=== PATIENT | female | born 1965 | race Caucasian/White ===

== ENCOUNTER 2018-04-12 08:03 | Outpatient (CLI) | payer OTHER, BC ==
--- NOTE | 2018-04-12 09:20 | CT ---
ABDOMEN AND PELVIC CT SCAN WITH IV CONTRAST: History: 52-year-old female with history of R10.32, left lower quadrant pain. Rectal bleeding. History of gregorio l stones in the pass. FINDINGS: The lung bases are clear. Liver, gallbladder, pancreas, spleen, and adrenal glands are unremarkable. No renal calculi or acute obstruction. No evidence for large or small bowel obstruction. No CT sergio dence for acute appendicitis. Ureters and adnexal regions are unremarkable. IMPRESSION: Unremarkable abdomen and pelvic CT scan. No significant abnormality. POS: PAWEL
== END 2018-04-12 08:04 | disposition home or self-care (01) ==
LOC: BICCT 08:03
PROVIDERS: ATTEND Family Medicine
DX: R10.32 Left lower quadrant pain (principal)
CPT/HCPCS: 74177

== ENCOUNTER 2018-05-02 08:05 | Outpatient (CLI) | payer OTHER | END 2018-05-02 08:06 | disposition home or self-care (01) | LOC: BICMAMMO 08:05 | PROVIDERS: ATTEND Family Medicine | DX: Z12.31 Encounter for screening mammogram for malignant neoplasm of breast (principal) | CPT/HCPCS: 77063; 77067 ==

== ENCOUNTER 2019-09-14 16:03 | Inpatient (IN) | payer OTHER ==
[~2019-09-14 16:03] MED LIST: Iopamidol-370 76% 500 ML 1 ML ONE
[2019-09-14 17:04] LABS: #Eosinphils 0.1 thou/uL (0.0-0.7); #Lymphocytes 1.8 thou/uL (1.20-3.40); #Monocytes 0.8 thou/uL (0.11-0.59); #Neutrophils 6.1 thou/uL (1.40-6.50); %Basophils 0.3 % (0.0-1.0); %Eosinophils 0.7 % (0.0-10.0); %Lymphocytes 20.7 % (21.0-51.0); %Monocytes 8.9 % (0.0-10.0); %Neutrophils 69.4 % (42.0-75.0); Mean Corpuscular HGB CONC 32.4 g/dL (32.0-36.0); Mean Corpuscular Hemoglobin 31.1 pg (27.0-31.0); Mean Corpuscular Volume 96.1 fL (78.0-98.0); Platelet Count 237 thou/uL (130-400); White Blood Cell (WBC) Count 8.9 thou/uL (4.8-10.8)
[2019-09-14 17:09] LABS: INR-International Normal Ratio 0.9; Prothrombin Time 12.4 sec (12.0-14.7)
[2019-09-14 17:13] LABS: PTT 24.9 SEC (22.9-36.1)
[2019-09-14 17:31] LABS: ALT (SGPT) 8 U/L (8-55); AST (SGOT) 17 U/L (5-34); Albumin 4.3 g/dL (3.5-5.0); Alkaline Phosphatase 70 U/L (40-110); Anion Gap 13 mmol/L (10-20); BUN (Urea Nitrogen) 15 mg/dL (9.8-20.1); Bilirubin, Total 0.7 mg/dL (0.2-1.2); Calc. Creatinine Clearance 0 mL/min (70-130); Carbon Dioxide 24 mmol/L (22-29); Chloride 104 mmol/L (98-107); Estimated GFR-MDRD 64; Globulin 2.9 g/dL (2.4-3.5); Glucose 83 mg/dL (70-105); Lipase 19 U/L (8-78); Potassium 3.7 mmol/L (3.5-5.1); Protein, Total 7.2 g/dL (6.0-8.3); Sodium 137 mmol/L (136-145)
[2019-09-14] MEDS ORDERED: Morphine 4 MG/ML VIAL ONE ×2 (17:34→20:54)
[2019-09-14] MEDS ORDERED: Ondansetron PF 4 MG/2 ML Vial ONE (17:34)
[2019-09-14 17:40] LABS: Bilirubin Negative (Negative); Blood, Urine Negative (Negative); Clarity Clear (Clear); Glucose, Urine (Dipstick) Normal (Negative); Leukocyte Negative Leu/uL (Negative); Nitrite Negative (Negative); Protein, Urine (Dipstick) 10 mg/dL (Neg-Trace); Urobilinogen Normal mg/dL (Less than 2)
[2019-09-14 17:42] LABS: Pregnancy Test - Urine (BHCG) Negative (Negative); Pregu Control Background? CLEAR/WHITE (CLR/WHITE); Pregu Control Bar Appear? YES (CONTROL BAR); Specific Gravity 1.029 (1.002-1.036)
--- NOTE | 2019-09-14 18:43 | CT ---
EXAM: CT ABDOMEN AND PELVIS HISTORY: Abdominal pain COMPARISON: 04/12/2018 Procedure: Multiple contiguous axial images were obtained and a CT of the abdomen and pelvis with IV contrast. C oronal reformats were performed. FINDINGS: Lower Chest: within normal limits. Vessels: Normal caliber aorta. No periaortic fat stranding Heart: Normal heart size. No significant pericardial fluid Abdomen: Portal vein:Patent Gallbladder: No calcified gallstones. Normal caliber wall. Liver: Subcentimeter hypodensity in the left hepatic lobe is too small to further characterize Pancreas: within normal limits. Spleen: within normal limits. Adrenals: within normal limits. Kidneys: Symmetric enhancement. No obstructive uropathy. Peritoneum: No ascites or free air, no fluid collection. Bowel: Limited evaluation due to the lack of oral contrast administration. No evidence of bowel obstr uction. Ileocecal junction is unremarkable. Hyperdense material suggesting debris within the appendix. No evidence of inflammatory change. Scattered fecal material in a nondistended, nondilated colon. There does appear to be a segment of bowel wall thickening with minimal pericolonic fat stranding involving the mid to distal transverse colon. Mesentery and Retroperitoneum: No enlarged mesenteric or retroperitoneal lymph nodes. Abdominal Wall: within normal limits. Pelvis: Reproductive Organs: Uterus has a normal attenuation. There are multiple hypodensities in the left an d right adnexa. The largest right adnexal hypodensity measures 3.0 x 4.0 cm and is compatible with a complex right ovarian cyst. Hypodensity in the left adnexa measures 2.7 x 1.8 cm and is compatible with a complex left ovarian cyst. There is an exophytic hypodensity emanating from the serosal margin of the lower uterus, measuring 2.2 x 1.7 cm with attenuation coefficient of -3 Hounsfield unit s suggesting a cystic lesion. Pelvis: No mass, lymphadenopathy, free air or free fluid. Bladder: within normal limits. Bones: within normal limits. IMPRESSION: 1. Possible colitis involving the transverse colon 2. Hypodensities involving the left and right adnexa as well as the serosal margin of the uterus may represent a combination of complex ovarian cyst and a nonspecific cystic lesion emanating from the uterus. Lesions were not appreciated on the previous examination. Nonemergent pelvic ultrasound/pelvi c MRI may be beneficial. Transcribed Date/Time: 09/14/2019 7:08 PM
[2019-09-14] MEDS ORDERED: Pantoprazole 40 MG VIAL ONE (20:54)
[2019-09-14] MEDS ORDERED: metroNIDAZOLE 500 MG/100 ML BAG ONE (20:55)
[2019-09-14] MEDS ORDERED: Ondansetron PF 4 MG/2 ML Vial IVP PRN (21:05)
[2019-09-14] MEDS: Dextrose 5 % And 0.9 % NaCl 1,000 ML IV SCH (23:20)
[2019-09-14] MEDS ORDERED: diphenhydrAMINE 50 MG/ML VIAL IVP SCH (23:30)
[2019-09-14 23:31] VITALS: BMI 24.0
[2019-09-15 00:39] LABS: #Eosinphils 0.1 thou/uL (0.0-0.7); #Lymphocytes 2.1 thou/uL (1.20-3.40); #Monocytes 0.7 thou/uL (0.11-0.59); %Basophils 0.4 % (0.0-1.0); %Eosinophils 1.8 % (0.0-10.0); %Lymphocytes 30.7 % (21.0-51.0); %Monocytes 9.4 % (0.0-10.0); %Neutrophils 57.7 % (42.0-75.0); Hemoglobin 12.8 g/dL (12.0-16.0); Mean Corpuscular HGB CONC 32.8 g/dL (32.0-36.0); Mean Corpuscular Hemoglobin 31.7 pg (27.0-31.0); Mean Corpuscular Volume 96.4 fL (78.0-98.0); Mean Platelet Volume 8.3 fL (7.4-10.4); Platelet Count 186 thou/uL (130-400); RBC Distribution Width 12.1 % (11.5-14.5); Red Blood Cell (RBC) Count 4.03 mill/uL (4.20-5.40)
--- NOTE | 2019-09-15 02:29 | HP ---
REASON FOR ADMISSION: Rectal bleed. HISTORY OF PRESENT ILLNESS: This is a 53-year-old female patient, who is presenting with rectal bleeding. History going back to approximately 18 hours of her presentation around 2:30 a.m., she felt her abdomen getting bloated and started having nausea, vomiting, abdominal pain, mainly localized on the right side of her abdomen. Then, she started having frequent episodes of bright red blood per rectum. She had a total of 18 episodes, the last one was 5 hours ago while she was in the emergency room. She denies having stool in her bowel movement. She did describe a bit of gel or tissue like material. She denies fever, denies chills. She does report nausea and vomiting. She does report being lightheaded yesterday. In 2018, the patient had bloating of her abdomen and severe pain, but she did not have any blood through her rectum. She did undergo an upper GI and a colonoscopy. Findings were normal. Her CT scan of the abdomen was normal as well. Since then, she has been having off and on episodes of bloating and abdominal discomfort and yesterday, she thought that she was having recurrence of these episodes, but then started having blood through her rectum. In the emergency room, she appears to be comfortable, but her blood pressure is elevated. As she started complaining of pain, her blood pressure became more elevated. PAST MEDICAL HISTORY: Migraines. FAMILY HISTORY: Negative for an inflammatory bowel disease. SOCIAL HISTORY: She does not smoke. Does not drink alcohol. ALLERGIES: NO KNOWN DRUG ALLERGIES. REVIEW OF SYSTEMS: All systems reviewed except the above mentioned, found to be negative. PHYSICAL EXAMINATION: GENERAL: She is awake, alert, oriented, does not appear in distress. VITAL SIGNS: Her blood pressure is 180/102, heart rate 75. HEENT: Head is nontraumatic, normocephalic. Pupils are equal, and reactive. Extraocular movements are intact. Nonicteric sclerae. Well injected conjunctivae. Oral mucosa normal. Nasal mucosa normal. NECK: Supple. No adenopathy. No murmur. Thyroid is not palpable. Trachea is midline. No supraclavicular lymphadenopathy. HEART: S1, S2 regular. No murmur. No gallops. No friction rubs. No displacement of PMI. LUNGS: Clear to auscultation bilaterally. No wheezes, rhonchi, or crackles. ABDOMEN: Bowel sounds are positive. Abdomen is tender on palpation, but overall soft. EXTREMITIES: No lower extremity edema. No cyanosis. NEUROLOGIC: Cranial nerves 2 through 12 within normal limits. Normal motor function. Normal sensory function. Normal reflexes. LABORATORY DATA: Blood work shows WBC of 8.9, hemoglobin 14, and platelets of 237. INR 0.9, PTT 24.9. Sodium 137, potassium of 3.7, BUN 15, creatinine 0.92. LFTs within normal limits. IMAGING: A CT of the abdomen and pelvis shows possible colitis involving the transverse colon, hyperdensity involving the left and right adnexa as well as the serosal margin of the uterus may represent a combination of complex ovarian cyst and nonspecific cystic lesion emanating from the uterus. These lesions were not appreciated on previous examination. Nonemergent pelvic ultrasound and pelvic MRI may be beneficial. ASSESSMENT AND PLAN: This is a 53-year-old female patient, who is presenting with abdominal pain and bleeding through her rectum, but remains hemodynamically stable and not anemic. She will be admitted to med/surg. We will keep her n.p.o. She will be on IV fluids. We will type and screen her and we will do serial H and H. I placed a consultation to Gastroenterology. We will have her on IV antibiotics just in case we are dealing with an infectious colitis, although she is not having fevers, though less likely. Also we will start her on IV Protonix in case we are dealing with an upper GI bleed, although she is having bright red blood and not melena, but just in case. For deep venous thrombosis prophylaxis, she will be on SCDs. For high blood pressure, she will be on hydralazine as needed and it seems that whenever her pain is better controlled, her blood pressure becomes better. In regards of the incidental finding on a CAT scan, I will discuss that with her and instruct her to follow up with her Weight Loss Sales Consultant as an outpatient. Job ID: [id number]
[2019-09-15] MEDS ORDERED: diphenhydrAMINE 50 MG/ML VIAL IVP PRN (05:11)
[2019-09-15] MEDS: Morphine 4 MG/ML VIAL SLOW IVP PRN ×2 (05:55→18:01)
[2019-09-15] MEDS ORDERED: metroNIDAZOLE 500 MG in Premix Bag 1 BAG IVPB SCH (06:00)
[2019-09-15 07:35] LABS: Calcium 7.9 mg/dL (7.8-10.44); Chloride 106 mmol/L (98-107); Potassium 3.6 mmol/L (3.5-5.1); Sodium 139 mmol/L (136-145)
[2019-09-15 07:36] LABS: Glucose 90 mg/dL (70-105)
[2019-09-15 07:37] LABS: Anion Gap 12 mmol/L (10-20); Carbon Dioxide 25 mmol/L (22-29)
[2019-09-15 07:39] LABS: Calc. Creatinine Clearance 83 mL/min (70-130); Estimated GFR-MDRD 70
[2019-09-15 07:40] LABS: BUN (Urea Nitrogen) 8 mg/dL (9.8-20.1)
[2019-09-15] MEDS: hydrALAZINE 20 MG/ML VIAL SLOW IVP PRN (08:15)
[2019-09-15] MEDS: Pantoprazole 40 MG VIAL IVP SCH ×2 (08:16→20:15)
[2019-09-15] MEDS: Dextrose 5 % And 0.9 % NaCl 1,000 ML IV SCH ×2 (09:32→14:14)
--- NOTE | 2019-09-15 11:19 | CON ---
DATE OF CONSULTATION: 09/15/2019 REQUESTING PHYSICIAN: Dr. Brock. REASON FOR CONSULTATION: Lower GI bleeding. HISTORY OF PRESENT ILLNESS: Rosa Harrington is a very pleasant 53-year-old woman, who was admitted to the hospital last night with lower GI bleeding. She has a past medical history significant only for migraines. She has seen my GI colleague, Dr. Nikki Samuels in the past. Back in March 2018, she had some CT lab and endoscopic workup for episodic bloating, nausea and vomiting. In March 2018, EGD showed only a small hiatal hernia, was otherwise normal. Colonoscopy at that time showed only left-sided diverticulosis and was otherwise normal. The patient reports over the past couple of years, she has continued to have episodic bloating and emesis episodes perhaps once per month, associated with generalized and migratory abdominal discomfort, but she has never had any overt blood in the stool before. Two days ago, she was feeling very dizzy and lightheaded, which is not usual for her. This lasted for several hours. She went to sleep, but then woke up about 2:30 a.m. yesterday, had to go into the bathroom and passed a large amount of bright red blood. This happened multiple times over several hours yesterday, in which she passed no stool, but just a lot of bright red blood, but also what appeared to be clots or possibly soft tissue. There was a lot of generalized abdominal discomfort with this involving the epigastrium in the right lower quadrant as well as the left side. The passages of blood slowed down and she has not passed any blood since late yesterday. The abdominal discomfort persists, though it is pretty well controlled on morphine. Upon presentation, she had a CT of the abdomen and pelvis, which demonstrated segmental bowel wall thickening in the mid to distal transverse colon without much pericolonic inflammatory stranding and also incidentally multiple cystic hypodensities in the bilateral adnexa. Laboratory studies are essentially unremarkable with hemoglobin stable at 12.8 this morning. She was started on ciprofloxacin and Flagyl as well as a Protonix drip. She has remained hemodynamically stable. REVIEW OF SYSTEMS: Full review of systems including constitutional; head, eyes, ears, nose, throat; GI; ; cardiovascular; respiratory; musculoskeletal; neurologic systems is negative except as noted in the HPI. PAST MEDICAL HISTORY: Migraines. SOCIAL HISTORY: No smoking or alcohol use. FAMILY HISTORY: Negative for inflammatory bowel disease. Her maternal grandfather had colon cancer. Her father had peptic ulcer disease. ALLERGIES: NO KNOWN DRUG ALLERGIES. MEDICATIONS: Outpatient medications, Effexor 50 mg daily. Inpatient medications; 1. Protonix 40 mg IV q.12 hours. 2. Zofran p.r.n. 3. Morphine p.r.n. 4. Ciprofloxacin 400 mg IV q.12 hours. 5. Metronidazole 500 mg IV. PHYSICAL EXAMINATION: VITAL SIGNS: Temperature 98.2, pulse 80, blood pressure 159/91, 96% oxygen saturation on room air. GENERAL: A 53-year-old woman, lying in bed comfortably, in no acute distress. SKIN: No jaundice. No rashes were palpable. She does have some small ecchymoses to the upper and lower extremities bilaterally. EYES: No scleral icterus. Extraocular movements are intact. ENT: Mucous membranes are moist. No oral lesions. LYMPH: No submandibular or supraclavicular lymphadenopathy. THYROID: Nontender to palpation. HEART: Regular rate and rhythm. LUNGS: Clear to auscultation bilaterally. ABDOMEN: Bowel sounds are present. Soft, tender to palpation throughout the abdomen including the epigastrium, left abdomen, and right lower quadrant, but no guarding or rebound tenderness. EXTREMITIES: No peripheral edema. VESSELS: Radial pulses 2+ bilaterally. NEURO: Cranial nerves 2 through 12 intact bilaterally. No focal deficits. LABORATORY STUDIES: Hemoglobin 12.8, WBC 7, platelets 186. INR 0.9. Sodium 139, potassium 3.6, BUN 8, creatinine 0.86, lipase 19. LFTs all normal with total bilirubin 0.7, alkaline phosphatase 70, AST 17, ALT 8, albumin 4.3. Urine test negative. Urinalysis negative. IMAGING STUDIES: CT of the abdomen and pelvis demonstrates segmental bowel wall thickening involving the mid to distal transverse colon. There are multiple cystic hypodensities in the bilateral adnexa measuring up to 4 cm, which is thought to be an incidental finding. The skin is otherwise unrevealing. ASSESSMENT AND PLAN: 1. Acute colitis, mid to distal transverse colon suggested on CT scan yesterday. 2. Lower GI bleeding, with stable hemoglobin and hematocrit this morning. 3. Generalized abdominal pain, acute on chronic. The patient's presentation seems most consistent with an acute colitis, and by CT, it appears to be involving the mid to distal transverse colon. With this episode of dizziness and presyncope, several hours preceding the onset of bloody stools, I have a suspicion that this may represent an episode of acute ischemic colitis. Also consider the possibility of infectious colitis versus inflammatory bowel disease, less likely neoplastic process in that area, given that she had an otherwise unrevealing colonoscopy in March 2018. With the abdominal pain she has been having, this is less likely to represent a diverticular bleed. At this point, she is getting excellent supportive care and hemoglobin and hematocrit are stable. I will order stool studies to be sent for Clostridium difficile and other infectious pathogens. We are going to go ahead and plan for diagnostic colonoscopy tomorrow. If the colonoscopy is negative or unrevealing, we will perform EGD as well. Thank you for the consultation. Please call anytime with questions or concerns. Job ID: [id number]
[2019-09-15] MEDS ORDERED: SUMAtriptan Succinate 50 MG TAB PO SCH (15:15)
[2019-09-15] MEDS ORDERED: Dihydroergotamine Mesylate 1 MG/ML AMP IM PRN (16:02)
[2019-09-15] MEDS ORDERED: GoLYTELY 4,000 ml Bottle PO SCH (18:00)
--- NOTE | 2019-09-15 18:05 | PDOC.HOSPP ---
- Subjective Encounter Date: 09/15/19 Encounter Time: 09:40 Subjective: Pt seen for followup re: GI bleed. c/o headache. No fevers. Mild RLQ pain. - Objective Vital Signs & Weight: Vital Signs (12 hours) Temp Pulse Resp BP BP Pulse Ox 09/15/19 15:52 98.1 F 81 16 137/93 H 100 09/15/19 10:45 98.4 F 86 16 117/73 98 09/15/19 10:26 148/90 H 09/15/19 09:34 135/74 09/15/19 08:20 96 09/15/19 08:15 80 09/15/19 07:00 98.2 F 80 16 159/91 H 96 Weight Weight 149 lb I&O: 09/14/19 09/15/19 09/16/19 06:59 06:59 06:59 Intake Total 975 Balance 975 Result Diagrams: 09/15/19 00:12 09/15/19 07:13 Additional Labs: Labs and MARs reviewed by fl Hospitalist ROS - Review of Systems Cardiovascular: denies: chest pain, palpitations, orthopnea, paroxysmal noc. dyspnea, edema, light headedness Gastrointestinal: denies: nausea, vomiting, abdominal pain, diarrhea, constipation, melena, hematochezia - Medication Medications: Active Medications Generic Name Dose Route Start Last Admin Trade Name Freq PRN Reason Stop Dose Admin Diphenhydramine HCl 50 mg 09/15/19 05:11 09/15/19 05:55 Benadryl IVP 50 mg Q6H PRN Administration Hives Hydralazine HCl 5 mg 09/14/19 21:12 09/15/19 08:15 Apresoline SLOW IVP 5 mg Q6H PRN Administration SBP > 140 Ciprofloxacin/Dextrose 400 mg/ 200 mls @ 200 mls/hr 09/14/19 22:00 09/15/19 08:17 Device IVPB 200 mls 1000,2200 IRMA Administration Dextrose/Sodium Chloride 1,000 mls @ 75 mls/hr 09/14/19 21:30 09/15/19 14:14 D5 0.9% Ns IV 1,000 mls .[id number] IRMA Administration Morphine Sulfate 4 mg 09/14/19 21:15 09/15/19 18:01 Morphine SLOW IVP 4 mg Q4H PRN Administration Breakthrough Pain Pantoprazole Sodium 40 mg 09/15/19 09:00 09/15/19 08:16 Protonix IVP 40 mg Q12HR IRMA Administration Polyethylene Glycol/Electrolytes 4,000 ml 09/15/19 18:00 09/15/19 18:01 Golytely PO 09/15/19 22:00 4,000 ml 1800 IRMA Administration - Exam General Appearance: awake alert Eye: anicteric sclera ENT: normocephalic atraumatic Neck: supple, symmetric, no JVD, no thyromegaly Heart: RRR, no gallops, no rubs, normal peripheral pulses Respiratory: CTAB, no wheezes, no rales, no ronchi Gastrointestinal: soft, non-distended, normal bowel sounds, no guarding, no rigidity Gastrointestinal - other findings: Mild RLQ tenderness Musculoskeletal: normal tone, normal strength Psychiatric: normal affect, normal behavior, A&O x 3 Hosp A/P (1) Lower GI bleed Code(s): K92.2 - GASTROINTESTINAL HEMORRHAGE, UNSPECIFIED Status: Acute (2) Colitis Code(s): K52.9 - NONINFECTIVE GASTROENTERITIS AND COLITIS, UNSPECIFIED Status : Acute (3) Migraine Code(s): G43.909 - MIGRAINE, UNSP, NOT INTRACTABLE, WITHOUT STATUS MIGRAINOSUS Status: Chronic (4) Depression Code(s): F32.9 - MAJOR DEPRESSIVE DISORDER, SINGLE EPISODE, UNSPECIFIED Status : Chronic - Plan Continue ciprofloxacin and Flagyl for possible infectious colitis. Trial Imitrex/DHE for migraine headache. Depression mild, stable. Continue Venlafaxine.
[2019-09-15] MEDS: diphenhydrAMINE 25 MG CAP PO PRN (21:15)
[2019-09-15] MEDS: SUMAtriptan Succinate 50 MG TAB PO PRN (23:07)
[2019-09-16] MEDS: hydrALAZINE 20 MG/ML VIAL SLOW IVP PRN ×2 (00:43→05:43)
[2019-09-16] MEDS: Dextrose 5 % And 0.9 % NaCl 1,000 ML IV SCH ×3 (00:46→21:07)
[2019-09-16 06:34] LABS: #Basophils 0.1 thou/uL (0.0-0.2); #Eosinphils 0.2 thou/uL (0.0-0.7); #Lymphocytes 2.3 thou/uL (1.20-3.40); #Monocytes 0.9 thou/uL (0.11-0.59); #Neutrophils 6.5 thou/uL (1.40-6.50); %Lymphocytes 23.2 % (21.0-51.0); %Neutrophils 64.7 % (42.0-75.0); Hemoglobin 14.3 g/dL (12.0-16.0); Mean Corpuscular Volume 96.8 fL (78.0-98.0); Mean Platelet Volume 8.1 fL (7.4-10.4); Platelet Count 237 thou/uL (130-400); RBC Distribution Width 12.1 % (11.5-14.5); Red Blood Cell (RBC) Count 4.47 mill/uL (4.20-5.40)
[2019-09-16 06:41] LABS: INR-International Normal Ratio 0.9; Prothrombin Time 12.4 sec (12.0-14.7)
[2019-09-16] MEDS: Pantoprazole 40 MG VIAL IVP SCH ×2 (08:47→21:06)
[2019-09-16] MEDS: Venlafaxine HCl 25 MG TAB PO SCH (08:47)
[2019-09-16] MEDS ORDERED: Morphine 4 MG/ML VIAL ONE (09:18)
[2019-09-16] MEDS ORDERED: Ondansetron PF 4 MG/2 ML Vial ONE (09:21)
[2019-09-16] MEDS ORDERED: Dicyclomine 10 MG CAP PO PRN (11:02)
--- NOTE | 2019-09-16 11:51 | OP ---
DATE OF PROCEDURE: 09/16/2019 DOCUMENT PROCESSING SPECIALIST SURGEON: None. PROCEDURES PERFORMED: Colonoscopy with biopsies. INDICATIONS: 1. Lower GI bleeding, resolved. 2. Generalized abdominal pain. 3. Acute colitis, with CT suggestive of focal inflammation in the mid to distal transverse colon area. MEDICATIONS: See Anesthesia record. FINDINGS: After discussion of the risks, benefits, and alternatives of the procedure, informed consent was obtained and witnessed. Pre-endoscopic cardiopulmonary examination was satisfactory. Time-out was performed before sedation was achieved. Sedation was achieved with Anesthesia assistance in the endoscopy unit. Digital rectal exam was performed, which was unremarkable. A Pentax adult colonoscope was inserted into the anus and passed forward to the cecum in the usual fashion. The cecal base was identified by the appendiceal orifice as well as the ileocecal valve. The terminal ileum was intubated and the ileal mucosa appeared normal. The colonoscope was slowly withdrawn in a gradual and circumferential manner with careful examination of the entire colonic mucosa. The quality of the prep was good at 60 cm from the anal verge, which is in the area of the splenic flexure, there is an area of focal colitis. This is mild in severity, characterized by erythema, edema, and a few small erosions in a patchy distribution, fairly localized. Biopsies were obtained from this area. Overall, it has the appearance of probable resolving ischemic colitis. The remainder of the colonic mucosa appeared normal throughout. There were no polyps or mass lesions visualized. Retroflexion in the rectum was unremarkable. The colonoscope was completely withdrawn and the patient allowed to recover. The patient tolerated the procedure well. There were no immediate postprocedure complications. IMPRESSION: 1. Focal colitis at the splenic flexure, mild in severity, patchy distribution, likely representing resolving ischemic colitis. Biopsied. 2. Otherwise normal colonoscopy to the terminal ileum. RECOMMENDATIONS: 1. Advance diet as tolerated. 2. Follow up pathology. 3. The antibiotic can be stopped. 4. Continue supportive care for symptoms. Dicyclomine could be used as needed for abdominal cramps. 5. Expect continued symptomatic improvement. From a GI standpoint, the patient could be discharged once discomfort is adequately controlled and she is tolerating her diet. Job ID: [id number]
[2019-09-16] MEDS ORDERED: PROPOFOL 200 MG/20 ML VIAL ONE (14:59)
[2019-09-16] MEDS: SUMAtriptan Succinate 50 MG TAB PO PRN (16:59)
--- NOTE | 2019-09-16 19:17 | PDOC.HOSPP ---
- Subjective Encounter Date: 09/16/19 Encounter Time: 19:15 Subjective: Pt seen for followup re: lower GI bleed. Feels better. No bleeding today. - Objective Vital Signs & Weight: Vital Signs (12 hours) Temp Pulse Resp BP Pulse Ox 09/16/19 12:50 98.0 F 105 H 20 117/69 98 09/16/19 11:25 98.0 F 95 18 137/87 99 09/16/19 09:00 98.2 F 105 H 20 141/88 H 96 09/16/19 07:24 98.0 F 107 H 16 128/77 99 Weight Weight 149 lb I&O: 09/15/19 09/16/19 09/17/19 06:59 06:59 06:59 Intake Total 975 6500 Balance 975 6500 Result Diagrams: 09/16/19 06:07 09/15/19 07:13 Additional Labs: Labs and MARs reviewed by wi Hospitalist ROS - Review of Systems Cardiovascular: denies: chest pain, palpitations, orthopnea, paroxysmal noc. dyspnea, edema, light headedness Gastrointestinal: reports: abdominal pain. denies: nausea, vomiting, diarrhea, constipation, melena, hematochezia - Medication Medications: Active Medications Generic Name Dose Route Start Last Admin Trade Name Freq PRN Reason Stop Dose Admin Diphenhydramine HCl 25 mg 09/14/19 23:13 09/15/19 21:15 Benadryl PO 25 mg Q4H PRN Administration Itching Diphenhydramine HCl 50 mg 09/15/19 05:11 09/15/19 05:55 Benadryl IVP 50 mg Q6H PRN Administration Hives Hydralazine HCl 5 mg 09/14/19 21:12 09/16/19 05:43 Apresoline SLOW IVP 5 mg Q6H PRN Administration SBP > 140 Dextrose/Sodium Chloride 1,000 mls @ 75 mls/hr 09/14/19 21:30 09/16/19 14:32 D5 0.9% Ns IV Not Given .[id number] IRMA Morphine Sulfate 4 mg 09/14/19 21:15 09/15/19 18:01 Morphine SLOW IVP 4 mg Q4H PRN Administration Breakthrough Pain Ondansetron HCl 4 mg 09/14/19 21:05 09/15/19 18:09 Zofran IVP 4 mg Q6H PRN Administration Nausea/Vomiting Pantoprazole Sodium 40 mg 09/15/19 09:00 09/16/19 08:47 Protonix IVP 40 mg Q12HR IRMA Administration Sodium Chloride 10 ml 09/15/19 21:00 09/16/19 08:48 Flush - Normal Saline IVF 10 ml Q12HR IRMA Administration Sumatriptan Succinate 50 mg 09/15/19 16:02 09/16/19 16:59 Imitrex PO 50 mg DAILY PRN Administration Migraine Headache Venlafaxine HCl 50 mg 09/16/19 09:00 09/16/19 08:47 Effexor PO 50 mg DAILY IRMA Administration - Exam General Appearance: awake alert Eye: anicteric sclera ENT: no oropharyngeal lesions, moist mucosa Neck: supple Heart: RRR Respiratory: CTAB Gastrointestinal: soft, non-tender, normal bowel sounds Musculoskeletal: no muscle wasting Psychiatric: normal affect, normal behavior Hosp A/P (1) Lower GI bleed Code(s): K92.2 - GASTROINTESTINAL HEMORRHAGE, UNSPECIFIED Status: Acute (2) Colitis Code(s): K52.9 - NONINFECTIVE GASTROENTERITIS AND COLITIS, UNSPECIFIED Status : Acute (3) Migraine Code(s): G43.909 - MIGRAINE, UNSP, NOT INTRACTABLE, WITHOUT STATUS MIGRAINOSUS Status: Chronic (4) Depression Code(s): F32.9 - MAJOR DEPRESSIVE DISORDER, SINGLE EPISODE, UNSPECIFIED Status : Chronic - Plan out of bed/ambulate, DVT proph w/SCDs s/p colonoscopy, likely ischemic colitis. Antibiotics discontinued. Continue PRN Imitrex/DHE for migraine headache. Continue Venlafaxine.
[2019-09-16] MEDS: diphenhydrAMINE 25 MG CAP PO PRN (21:06)
[2019-09-17] MEDS: Dextrose 5 % And 0.9 % NaCl 1,000 ML IV SCH ×2 (02:57→09:36)
[2019-09-17] MEDS: Venlafaxine HCl 25 MG TAB PO SCH (09:35)
[2019-09-17] MEDS: Pantoprazole 40 MG VIAL IVP SCH (09:36)
--- NOTE | 2019-09-17 11:05 | PRG ---
DATE OF SERVICE: 09/17/2019 SUBJECTIVE: Ms. Harrington is feeling quite a bit better today. She has not had any further diarrhea or hematochezia, actually no bowel movement since colonoscopy yesterday. She still is having a bit of more mild crampy generalized abdominal discomfort and continued headache. OBJECTIVE: VITAL SIGNS: Temperature 98.9, pulse 85, blood pressure 135/85, and 95% oxygen saturation on room air. GENERAL: No acute distress, sitting up in bed comfortably. HEART: Regular rate and rhythm. LUNGS: Clear to auscultation bilaterally. ABDOMEN: Bowel sounds present. Soft. Some mild tenderness to palpation in the lower abdomen. No guarding or rebound tenderness. EXTREMITIES: No peripheral edema. LABORATORY STUDIES: No new labs this morning. Colon biopsies are pending. ASSESSMENT/PLAN: 1. Acute focal colitis at the splenic flexure, likely represents ischemic colitis, resolving. 2. Lower gastrointestinal bleeding, resolved. 3. Generalized abdominal pain, appears to be secondary to resolving ischemic colitis. The patient remains clinically stable with no further hematochezia. Endoscopic appearance of the colon yesterday did appear to represent resolving ischemic colitis. I discussed with the patient that symptoms should continue to improve over the next few days and weeks. She may have some IBS symptoms during this time. It would be reasonable to take dicyclomine 10 mg 3 times daily as needed, but nothing further should be required. She is tolerating her diet. I think she is stable for discharge from the hospital today. We will have her followup in the [facility] in the next few weeks with Dr. Samuels or her physician activity assistant. GI will sign off. Please call back anytime with questions or concerns. Job ID: [id number]
[2019-09-17 11:17] LABS: #Eosinphils 0.1 thou/uL (0.0-0.7); #Monocytes 0.7 thou/uL (0.11-0.59); #Neutrophils 4.7 thou/uL (1.40-6.50); %Basophils 0.5 % (0.0-1.0); %Eosinophils 2.2 % (0.0-10.0); %Lymphocytes 15.7 % (21.0-51.0); %Monocytes 10.5 % (0.0-10.0); %Neutrophils 71.2 % (42.0-75.0); Hemoglobin 12.3 g/dL (12.0-16.0); Mean Corpuscular HGB CONC 32.6 g/dL (32.0-36.0); Mean Corpuscular Hemoglobin 31.9 pg (27.0-31.0); Mean Corpuscular Volume 97.9 fL (78.0-98.0); Mean Platelet Volume 8.1 fL (7.4-10.4); Platelet Count 160 thou/uL (130-400); RBC Distribution Width 12.1 % (11.5-14.5); Red Blood Cell (RBC) Count 3.84 mill/uL (4.20-5.40); White Blood Cell (WBC) Count 6.6 thou/uL (4.8-10.8)
[2019-09-17 11:36] LABS: Anion Gap 10 mmol/L (10-20); BUN (Urea Nitrogen) 6 mg/dL (9.8-20.1); Calc. Creatinine Clearance 95 mL/min (70-130); Calcium 8.1 mg/dL (7.8-10.44); Carbon Dioxide 26 mmol/L (22-29); Chloride 106 mmol/L (98-107); Estimated GFR-MDRD 81; Glucose 93 mg/dL (70-105); Sodium 138 mmol/L (136-145)
[2019-09-17 13:54] VITALS: BP 148/97; TEMP 98.3
--- NOTE | 2019-09-18 02:30 | DIS ---
DATE OF ADMISSION: 09/14/2019 DATE OF DISCHARGE: 09/17/2019 PRIMARY CARE PROVIDER: Dr. Richard. Xavier. DISCHARGE DIAGNOSES: 1. Ischemic colitis. 2. Migraine headaches. 3. Stable. CONDITION OF PATIENT ON THE DAY OF DISCHARGE: I assessed Ms. Harrington on the day of discharge. She denies any chest pain or shortness of breath. Vital signs are stable. S1 and S2 are heard, regular. Lungs are clear to auscultation bilaterally. CONSULTATIONS DURING THIS HOSPITALIZATION: Gastroenterology, Dr. Jelani Vegas. POST-ACUTE CARE FOLLOWUP: With primary care provider in 3 days and with Gastroenterology Service in 2 to 3 weeks. DISCHARGE MEDICATIONS: 1. Effexor 50 mg daily. 2. Zomig 2.5 mg every 6 hours as needed, 30 tablets to be dispensed. 3. Bentyl 10 mg 3 times daily as needed, 30 doses to be dispensed. HOSPITAL COURSE: Ms. Harrington is a pleasant 53-year-old lady who was admitted to [facility] on September 14, 2019 for bloody bowel movements. She was initially started on antibiotics, because of suspicion of infectious colitis. Stool Clostridium difficile test was negative. Campylobacter antigen assay and shiga toxin test were negative. She was seen by Gastroenterology Service. She underwent colonoscopy on September 16, 2019. She had focal colitis of the splenic flexure, mild in severity, patchy distribution, likely representing resolving ischemic colitis. Biopsies were taken. She also had episodes of migraine headaches during this hospitalization, which improved with Imitrex. She continued to improve clinically and is being discharged home in a stable condition. On the day of discharge, she has white count of 6600, hemoglobin 12.3, and platelet count 160,000. Many thanks for allowing me to participate in your patient's care. Please feel free to contact me with any questions or concerns. DIET: Regular. ACTIVITY: No restrictions. DISCHARGE DESTINATION: Home. TIME SPENT: Total amount of time spent coordinating this discharge: 31 minutes. Job ID: [id number]
--- NOTE | 2019-09-20 06:46 | PQF ---
GERI KHALIL DAVID [id number] CLINICAL DOCUMENTATION CLARIFICATION FORM: POST DISCHARGE Addendum to original discharge summary date: ____ Late entry note date: __ DATE:09/20/2019 ATTN: Jelani Chicas Please exercise your independent, professional judgment in responding to the clarification form. Clinical indicators are provided on the bottom of this form for your review Please check appropriate box(s): [ ] Primary/Essential Hypertension [ ] Emergency [ ] Urgency [ ] Crisis [ x ] Transient Hypertension [ ] Other diagnosis [ ] Unable to determine In addition, please specify: Present on Admission (POA): [ x ] Yes [ ] No [ ] Unable to determine For continuity of documentation, please document condition throughout progress notes and discharge summary. Thank You. CLINICAL INDICATORS - SIGNS / SYMPTOMS / LABS Vital signs 09/13 BP 166/103, Pulse 80, Resp 15. Temp 98.4 Vital signs 09/14 BP 159/91, Pulse 80, Resp 16, Temp 98.2 Vital signs 09/15 BP 162/93, Pulse 83, Resp 18, Temp 99.0 H&P p3 09/13 For high blood pressure, she will be on hydralazine as needed and it seems that when her pain is better controlled, her blood pressure becomes better Consult 09/14 she was feeling very dizzy and lightheaded PN 09/14 c/o headache RISK FACTORS H&P p1 09/13 Migraines H&P p3 09/13 Ischemic Colitis TREATMENTS: JUN 28 IV Hydralazine Hcl 5mg Vital signs monitoring (This form is maintained as a part of the permanent medical record) 2014 [employer]. All Rights Reserved [email or web address]
--- NOTE | 2019-09-20 14:06 | PQF ---
GERI KHALIL ALEE GARCIA [id number] CLINICAL DOCUMENTATION IMPROVEMENT CLARIFICATION FORM: ICD-10 Updated PLEASE DO AN ADDENDUM TO THE PROGRESS NOTE WITH ANY DOCUMENTATION UPDATES OR ADDITIONS AND CARRY THROUGH TO DC SUMMARY. THANK YOU. DATE: 09/20/2019 ATTN: Dr. Kincaid Please exercise your independent, professional judgment in responding to the clarification form. Clinical indicators are provided on the bottom of this form for your review Please check appropriate box(s): [ x] Depression/Major Depressive Disorder Single episode: [ ] Mild [ ] Moderate [ ] Severe [ ] with psychotic features [ ] without psychotic features [ x] In remission [ ] partial remission [ ] full remission [ ] Depression/Major Depressive Disorder Recurrent episode: [ ] Mild [ ] Moderate [ ] Severe [ ] with psychotic features [ ] without psychotic features [ ] In remission [ ] partial remission [ ] full remission [ ] Other diagnosis [ ] Unable to determine In addition, please specify: Present on Admission (POA): [ x ] Yes [ ] No [ ] Unable to determine For continuity of documentation, please document condition throughout progress notes and discharge summary. Thank You. CLINICAL INDICATORS - SIGNS / SYMPTOMS / LABS / RESULTS AND LOCATION IN EMR * PN 09/14 (Sanjiv): * Psychiatriac: normal affect, normal behavior, A&O x3 * Depression, stable. Continue Venlafaxine. RISK FACTORS / RESULTS AND LOCATION IN EMR * PN 09/14 (Sanjiv): Depression mild, stable TREATMENT / RESULTS AND LOCATION IN EMR * MAR (EMR): Venlafaxine Hcl 50mg daily PO 09/15-09/16 * DC Summary 09/16 (Sanjiv): Discharged Medications: Effexor 50 mg daily. Thank you! María (This form is maintained as a part of the permanent medical record) 2014 [employer]. All Rights Reserved María Singleton RN, [email or web address] [email or web address] phone: [facility]
== END 2019-09-17 13:40 | disposition home or self-care (01) | DRG 395 ==
LOC: ERS 16:03 → T4-B 20:41
PROVIDERS: ADMIT Internal Medicine; ATTEND Internal Medicine
PROC: 0DBL8ZX Excision of Transverse Colon, Via Natural or Artificial Opening Endoscopic, Diagnostic (ICD-10-PCS; principal; 2019-09-16)
DX: K55.031 Focal (segmental) acute (reversible) ischemia of large intestine (principal); G43.909 Migraine, unspecified, not intractable, without status migrainosus; F32.9 Major depressive disorder, single episode, unspecified; R03.0 Elevated blood-pressure reading, without diagnosis of hypertension; Z79.899 Other long term (current) drug therapy
CPT/HCPCS: 36415; 74177; 80048; 80053; 81003; 81025; 83690; 85025; 85610; 85730; 86850; 86900; 86901; 87045; 87046; 87324; 87427; 87449; 88305; 93005; 94760; 96361; 96365; 96375; 96376; C9113; J0360; J0744; J1200; J2270; J2405; J2704; Q0163; Q9967

== ENCOUNTER 2020-01-22 15:04 | Outpatient (CLI) | payer OTHER ==
--- NOTE | 2020-01-22 15:48 | MMO ---
Bilateral MAMMO Bilat Screen [facility]. CLINICAL HISTORY: Patient is 54 years old and is seen for screening. The patient has no family history of breast cancer. The patient has no personal history of cancer. The patient has a history of bilateral Implants in 2004. VIEWS: The views performed were: bilateral craniocaudal with tomosynthesis and bilateral mediolateral oblique with tomosynthesis. FILMS COMPARED: The present examination has been compared to prior imaging studies performed at [facility] and the [facility] on 04/03/2005, 02/12/2017 and 05/02/2018. This study has been interpreted with the assistance of computer-aided detection. MAMMOGRAM FINDINGS: There are scattered fibroglandular densities. Bilateral implants are stable. There are no suspicious masses, suspicious calcifications, or new areas of architectural distortion. IMPRESSION: THERE IS NO MAMMOGRAPHIC EVIDENCE OF MALIGNANCY. A ROUTINE FOLLOW-UP MAMMOGRAM IN 1 YEAR IS RECOMMENDED. THE RESULTS OF THIS EXAM WERE SENT TO THE PATIENT. ACR BI-RADS Category 2 - Benign finding MAMMOGRAPHY NOTE: 1. A negative mammogram report should not delay a biopsy if a dominant of clinically suspicious mass is present. 2. Approximately 10% to 15% of breast cancers are not detected by mammography. 3. Adenosis and dense breasts may obscure an underlying neoplasm. Reported by: LAYTON MORALES MD Electonically Signed: [id number]
== END 2020-01-22 15:05 | disposition home or self-care (01) ==
LOC: BICMAMMO 15:04
PROVIDERS: ATTEND Family Medicine
DX: Z12.31 Encounter for screening mammogram for malignant neoplasm of breast (principal); Z98.82 Breast implant status
CPT/HCPCS: 77063; 77067

== ENCOUNTER 2020-06-18 10:09 | Emergency (ER) | payer OTHER ==
[2020-06-18] MEDS ORDERED: Iopamidol-370 76% 500 ML 1 ML ONE (10:27)
[2020-06-18 10:47] LABS: #Basophils 0.1 thou/uL (0.0-0.2); #Lymphocytes 1.4 thou/uL (1.20-3.40); #Monocytes 0.4 thou/uL (0.11-0.59); #Neutrophils 2.7 thou/uL (1.40-6.50); %Basophils 2.3 % (0.0-1.0); %Eosinophils 0.7 % (0.0-10.0); %Lymphocytes 30.7 % (21.0-51.0); %Monocytes 8.1 % (0.0-10.0); %Neutrophils 58.1 % (42.0-75.0); Hemoglobin 14.5 g/dL (12.0-16.0); Mean Corpuscular HGB CONC 33.7 g/dL (32.0-36.0); Mean Corpuscular Hemoglobin 31.3 pg (27.0-31.0); Mean Platelet Volume 7.4 fL (7.4-10.4); Platelet Count 202 thou/uL (130-400); Red Blood Cell (RBC) Count 4.64 mill/uL (4.20-5.40); White Blood Cell (WBC) Count 4.7 thou/uL (4.8-10.8)
[2020-06-18] MEDS ORDERED: Morphine 4 MG/ML VIAL ONE (10:54)
[2020-06-18] MEDS ORDERED: Ondansetron PF 4 MG/2 ML Vial ONE (10:55)
[2020-06-18 11:22] LABS: ALT (SGPT) 9 U/L (8-55); AST (SGOT) 18 U/L (5-34); Albumin 4.5 g/dL (3.5-5.0); Alkaline Phosphatase 65 U/L (40-110); Anion Gap 13 mmol/L (10-20); BUN (Urea Nitrogen) 10 mg/dL (9.8-20.1); Bilirubin, Total 0.4 mg/dL (0.2-1.2); Calc. Creatinine Clearance 0 mL/min (70-130); Calcium 9.2 mg/dL (7.8-10.44); Carbon Dioxide 27 mmol/L (22-29); Chloride 104 mmol/L (98-107); Glucose 97 mg/dL (70-105); Lipase 24 U/L (8-78); Potassium 4.1 mmol/L (3.5-5.1); Protein, Total 7.5 g/dL (6.0-8.3); Sodium 140 mmol/L (136-145)
--- NOTE | 2020-06-18 11:29 | CT ---
CTA PELVIS WITH 3D RENDERING CTA ABDOMEN WITH 3D RENDERING: HISTORY: Evaluate for ischemic bowel disease. Past medical history of ischemic colitis. Abdominal pain. Sympto ms x1 week. COMPARISON: Abdomen and pelvic CT 09/14/2019. TECHNIQUE: CT angiogram of the thoracic and abdominal aorta performed in the axial plane. Three-dimensional refo rmatted images are submitted for interpretation. FINDINGS: Heart: Normal heart size. No significant pericardial fluid. Pleural spaces: No pleural effusion. Right lung: Unremarkable visualized right lung base. Left lung: Scarring and atelectasis in the left lung base. Abdomen CT: Gallbladder: No CT evidence of cholelithiasis or cholecystitis. Portal vein: Patent. Solid organs:Appropriate arterial phase enhancement of the liver, spleen, pancreas and bilateral adre nal glands. Kidneys: Symmetric enhancement. No obstructive uropathy. Mesentery: No mass, lymphadenopathy, free air or free fluid. Alimentary canal: Limited evaluation of the alimentary canal by the lack of oral contrast administrat ion. Unremarkable gastric mucosa. There are multiple nondistended, nondilated loops of small bowel. No evidence of bowel wall edema. Normal ileocecal junction. Normal caliber appendix. Scattered fecal material in a nondistended, nondilated colon. The mucosa the colon does not appear to be thickened. There is no pericolonic fat stranding. There are diverticula in the sigmoid colon, without evidence o f diverticulitis. Pelvic CT: No mass, lymphadenopathy, free air or free fluid. Presacral fat is preserved. Unremarkable urinary bladder. Line osseous structures: No lytic or blastic lesions in the osseous structures. CT ANGIOGRAM: Aorta: There is no evidence of aneurysm or dissection the descending thoracic aorta, abdominal aorta or aortic bifurcation. Visualized iliac arteries have appropriate enhancement and luminal diameter. Celiac artery: Appropriate enhancement and luminal diameter. There is no evidence of dissection or th rombus. Superior mesenteric artery: Appropriate enhancement and luminal diameter. No evidence of thrombus or dissection. Renal arteries: Appropriate enhancement and luminal diameter in the left and right renal arteries. No te, there is early bifurcation of the right renal artery. Inferior mesenteric artery: Appropriate enhancement and luminal diameter. IMPRESSION: 1. No evidence of aneurysm or dissection of the visualized aorta. 2. Appropriate enhancement and luminal diameter involving the abdominal vasculature. There is no sign ificant stenosis or thrombus in the celiac artery, superior mesenteric artery or inferior mesenteric artery. Transcribed Date/Time: 06/18/2020 11:40 AM
[2020-06-18 12:00] LABS: Bilirubin Negative (Negative); Blood, Urine Negative (Negative); Clarity Clear (Clear); Glucose, Urine (Dipstick) Normal (Negative); Ketone, Urine Negative (Negative); Leukocyte Negative Leu/uL (Negative); Nitrite Negative (Negative); Protein, Urine (Dipstick) Negative (Neg-Trace); Specific Gravity, Urine 1.049 (1.002-1.036); Urobilinogen Normal mg/dL (Less than 2); pH, Urine 6.5 (5.0-9.0)
== END 2020-06-18 13:46 | disposition home or self-care (01) ==
LOC: ERS 10:09
DX: R10.9 Unspecified abdominal pain (principal); R10.813 Right lower quadrant abdominal tenderness; R10.811 Right upper quadrant abdominal tenderness
CPT/HCPCS: 36415; 74174; 80053; 81003; 83605; 83690; 85025; 87040; 93005; 96372; 96374; 96375; J0500; J2270; J2405; Q9967

== ENCOUNTER 2020-07-03 08:27 | Outpatient (CLI) | payer OTHER | END 2020-07-03 08:28 | disposition home or self-care (01) | LOC: NM 08:27 | PROVIDERS: ATTEND Internal Medicine | DX: R10.11 Right upper quadrant pain (principal); R11.2 Nausea with vomiting, unspecified | CPT/HCPCS: 78227; A9537 ==

== ENCOUNTER 2020-08-20 16:12 | Outpatient (CLI) | payer OTHER ==
[2020-08-20 17:52] LABS: #Monocytes 0.6 10x3/uL (0.0-1.1); #Neutrophils 3.4 10x3/uL (1.5-8.4); %Basophils 0.5 % (0.0-2.0); %Eosinophils 0.5 % (0.0-6.0); %Lymphocytes 27.6 % (18.0-47.0); %Monocytes 9.9 % (0.0-10.0); %Neutrophils 61.3 % (40.0-75.0); Mean Corpuscular HGB CONC 33.2 g/dL (32.0-36.0); Mean Corpuscular Hemoglobin 30.8 pg (27.0-33.0); Mean Corpuscular Volume 92.9 fl (81.6-98.3); Mean Platelet Volume 10.4 fl (7.4-10.4); Platelet Count 204 10x3/uL (150-450); RBC Distribution Width 12.4 % (11.5-14.5); Red Blood Cell (RBC) Count 4.22 10x6/uL (3.90-5.03); White Blood Cell (WBC) Count 5.5 10x3/uL (3.5-10.5)
[2020-08-20 18:03] LABS: ALT (SGPT) 12 U/L (8-55); AST (SGOT) 17 U/L (5-34); Albumin 4.6 g/dL (3.5-5.0); Alkaline Phosphatase 70 U/L (40-110); Anion Gap 13 mmol/L (10-20); BUN (Urea Nitrogen) 11 mg/dL (9.8-20.1); Bilirubin, Direct 0.1 mg/dL (0.1-0.3); Bilirubin, Total 0.3 mg/dL (0.2-1.2); Calc. Creatinine Clearance 0 mL/min (70-130); Calcium 9.4 mg/dL (7.8-10.44); Carbon Dioxide 29 mmol/L (22-29); Chloride 102 mmol/L (98-107); Globulin 2.9 g/dL (2.4-3.5); Glucose 86 mg/dL (70-105); Potassium 4.5 mmol/L (3.5-5.1); Protein, Total 7.5 g/dL (6.0-8.3); Sodium 139 mmol/L (136-145)
[2020-08-21 07:38] LABS: SARS-CoV-2 PCR by NAA Not Detected (NotDetected)
== END 2020-08-20 16:13 | disposition home or self-care (01) ==
LOC: LABBT 16:12
PROVIDERS: ATTEND Surgery
DX: Z01.812 Encounter for preprocedural laboratory examination (principal); K81.1 Chronic cholecystitis; Z20.822 Contact with and (suspected) exposure to COVID-19
CPT/HCPCS: 80053; 80076; 85025; 87635; U0003; U0005

== ENCOUNTER 2020-08-23 08:49 | Day surgery (SDC) | payer OTHER ==
[2020-08-22 12:17] VITALS: BMI 21.7
[2020-08-23] MEDS ORDERED: Lidocaine 1% w/Epinephrine 1:100K 20 ML VIAL ONE (10:57)
[2020-08-23] MEDS ORDERED: Bupivacaine 0.25% HCL 30 ML VIAL ONE (10:57)
[2020-08-23] MEDS ORDERED: Fentanyl 100 MCG/2 ML VIAL ONE ×2 (11:11→12:43)
[2020-08-23] MEDS ORDERED: Lidocaine 2% Jelly 5 ML TUBE ONE (11:11)
[2020-08-23] MEDS ORDERED: Midazolam HCl 2 mg/2 ml Vial ONE (11:11)
[2020-08-23] MEDS ORDERED: Rocuronium Bromide 10 MG/ML (10ML VIAL) ONE (11:24)
[2020-08-23] MEDS ORDERED: PROPOFOL 200 MG/20 ML VIAL ONE (11:24)
[2020-08-23] MEDS ORDERED: Dexamethasone 20 MG/5 ML VIAL ONE (11:24)
[2020-08-23] MEDS ORDERED: Ondansetron PF 4 MG/2 ML Vial ONE (11:24)
[2020-08-23] MEDS ORDERED: Glycopyrrolate 0.2 MG/ML 5 ML SYRINGE ONE (11:24)
[2020-08-23] MEDS ORDERED: ePHEDrine Sulfate 50 MG/10 ML VIAL ONE (11:24)
[2020-08-23] MEDS ORDERED: Lidocaine 1% PF 5 ML VIAL ONE (11:24)
[2020-08-23] MEDS ORDERED: Ketorolac Tromethamine 30 MG/ML VIAL ONE (11:24)
[2020-08-23] MEDS ORDERED: Meperidine HCl/PF 25 MG/ML VIAL ONE (12:29)
[2020-08-23] MEDS ORDERED: diphenhydrAMINE 50 MG/ML VIAL ONE (13:03)
[2020-08-23] MEDS ORDERED: Acetaminophen/Codeine 30-300mg Tablet ONE (13:49)
== END 2020-08-23 15:20 | disposition home or self-care (01) ==
LOC: SDC 08:49
PROVIDERS: ATTEND Surgery
PROC: 0FT44ZZ Resection of Gallbladder, Percutaneous Endoscopic Approach (ICD-10-PCS; principal; 2020-08-23)
DX: K81.1 Chronic cholecystitis (principal); Z79.899 Other long term (current) drug therapy; Z88.5 Allergy status to narcotic agent
CPT/HCPCS: 88304; J0690; J1100; J1200; J1885; J2175; J2250; J2405; J2704; J3010; S0020

== ENCOUNTER 2022-08-05 09:25 | Outpatient (CLI) | payer OTHER | END 2022-08-05 09:26 | disposition home or self-care (01) | LOC: BICMAMMO 09:25 | PROVIDERS: ATTEND Family Medicine | DX: Z12.31 Encounter for screening mammogram for malignant neoplasm of breast (principal) | CPT/HCPCS: 77063; 77067 ==

== ENCOUNTER 2023-03-11 15:00 | Outpatient (CLI) | payer BC | END 2023-03-11 15:01 | disposition home or self-care (01) | LOC: SCSMRI 15:00 | PROVIDERS: ATTEND Family Medicine | DX: M47.26 Other spondylosis with radiculopathy, lumbar region (principal); M46.1 Sacroiliitis, not elsewhere classified; M25.511 Pain in right shoulder; M43.16 Spondylolisthesis, lumbar region; M43.8X6 Other specified deforming dorsopathies, lumbar region; R93.7 Abnormal findings on diagnostic imaging of other parts of musculoskeletal system; R19.5 Other fecal abnormalities; M48.061 Spinal stenosis, lumbar region without neurogenic claudication; M48.07 Spinal stenosis, lumbosacral region; Z90.49 Acquired absence of other specified parts of digestive tract | CPT/HCPCS: 72100; 72148 ==

== ENCOUNTER 2023-09-06 14:03 | Outpatient (CLI) | payer BC | END 2023-09-06 14:04 | disposition home or self-care (01) | LOC: BICMAMMO 14:03 | PROVIDERS: ATTEND Family Medicine | DX: Z12.31 Encounter for screening mammogram for malignant neoplasm of breast (principal); Z98.82 Breast implant status | CPT/HCPCS: 77063; 77067 ==